=== PATIENT | female | born 1955 | race Caucasian/White ===

== ENCOUNTER 2017-08-16 08:00 | Inpatient (IN) | payer OTHER ==
[~2017-08-16] VITALS: Ht 157.5 cm; Wt 58.1 kg
[2017-08-16] MEDS ORDERED: VASOTEC20 M1 PO (09:23)
[2017-08-16] MEDS ORDERED: METFORMIN HCL500 MG PO (09:23)
[2017-08-16] MEDS ORDERED: ASA81 MG PO (09:24)
[2017-08-16] MEDS ORDERED: HUMULIN N100 UNIT/2 (09:24)
[2017-08-16] MEDS ORDERED: GABAPENTIN100 MG PO (09:24)
[2017-08-26] MEDS ORDERED: DUI500 PO (07:56)
[2017-08-26] MEDS ORDERED: XARELTO10 MG PO (07:56)
[2017-08-26] MEDS ORDERED: PERCOCET 5-3251 EACH PO (07:56)
== END 2017-08-26 13:12 | DRG 470 ==
LOC: O/R 08-23 05:40 → SURG 08-23 05:40 → SURH 08-23 08:00 → SURG 08-23 17:52
PROVIDERS: Orthopaedic Surgery
PROC: 0QNF0ZZ Release Left Patella, Open Approach (ICD-10-PCS; 2017-08-23)
PROC: 0SRD0J9 Replacement of Left Knee Joint with Synthetic Substitute, Cemented, Open Approach (ICD-10-PCS; principal; 2017-08-23 17:45)
DX: M17.12 Unilateral primary osteoarthritis, left knee (principal); D62 Acute posthemorrhagic anemia; I10 Essential (primary) hypertension; E11.9 Type 2 diabetes mellitus without complications; M81.0 Age-related osteoporosis without current pathological fracture; M22.12 Recurrent subluxation of patella, left knee